=== PATIENT | female | born 1990 | race Caucasian/White ===

== ENCOUNTER 2018-09-17 12:40 | Emergency (ER) | payer OTHER ==
[~2018-09-17] VITALS: Ht 157.5 cm; Wt 63.5 kg
--- NOTE | 2018-09-17 12:55 | NUR ---
ED Nurse Note: Pt came in due to left ankle swelling and pain due to twisting during rock climbing.
--- NOTE | 2018-09-17 13:02 | Emergency Room Report ---
History of Present Illness General Chief Complaint: Lower Extremity Injury Source: Patient Present Illness HPI Patient is a 27-year-old female presenting for left ankle pain. She states that she was bouldering yesterday approximately 4 feet off the ground when she fell onto her left foot. She felt her left ankle roll underneath her and heard a popping sound. Pain has continued and is an 8 out of 10 dull ache. Does not radiate. Worse with movement and walking. She denies previous ankle injury. She has used Motrin which does help. She denies any knee pain or back pain. She denies any other injury or symptoms including numbness, tingling, calf pain , rash Allergies: Coded Allergies: AMOXICILLIN (Verified Allergy, Unknown, 09/17/18) Patient History Past Medical History: see triage record Pertinent Family History: none Last Menstrual Period: 09/01 Reviewed Nursing Documentation: PMH: Agreed; PSxH: Agreed Nursing Documentation-PM Past Medical History: No Stated History Review of Systems All Other Systems: negative except mentioned in HPI Physical Exam Vital Signs Date Time Temp Pulse Resp B/P (MAP) Pulse Ox O2 Delivery O2 Flow Rate FiO2 09/17/18 12:45 98.2 103 17 124/80 99 Room Air Sp02 EP Interpretation: reviewed, normal General Appearance: no apparent distress, alert, GCS 15, non-toxic Head: normocephalic, atraumatic Respiratory: normal inspection, no respiratory distress, speaking full sentences Musculoskeletal: back normal, decreased range of motion, inflammation - L ankle , tender - TTP over L medial and lateral malleoli Neurologic: alert, oriented x3, responsive, motor strength/tone normal, sensory intact, speech normal Psychiatric: judgement/insight normal, memory normal, mood/affect normal, no suicidal/homicidal ideation Skin: normal color, no rash, warm/dry, well hydrated Procedures Splinting Splinting : Consent: Verbal Location: L leg Hand-Made Type: plaster Splint: sugar-tong Pre-Proc Neuro Vasc Exam: normal Post-Proc Neuro Vasc Exam: normal Patient Tolerated: Well Complications: None Medical Decision Making PA Attestation Dr. Childs is my supervising physician. Patient management was discussed with my supervising physician Diagnostic Impression: Primary Impression: Ankle sprain Qualified Codes: S93.402A - Sprain of unspecified ligament of left ankle, initial encounter ER Course Patient is a 27-year-old female presenting for left ankle pain. Ddx considered include but not limited to sprain/strain, fracture, contusion Physical exam: Vitals within normal limits. No apparent distress Left ankle: There is tenderness to palpation and edema over the left lateral and medial malleoli. Limited active range of motion. Sensation intact to light touch. No ecchymosis. No knee or back tenderness. Full AROM intact X-ray of the left ankle shows swelling but no fracture. Left ankle placed in sugar tong splint and patient is provided crutches. Ortho referral provided. Pt is to F/U with PCP and ortho PUMA ER precautions are given. Patient given prescription for Motrin and will follow up with primary care physician. Other X-Ray Diagnostic Results Other X-Ray Diagnostic Results : X-Ray ordered: L ankle # of Views/Limited Vs Complete: 3 View, Complete Indication: Pain EP Interpretation: Yes PA Xray: Interpretation reviewed, by supervising MD, and agrees with findings. Interpretation: no dislocation, no fractures, other - + STS Electronically Signed by: WILI Fonseca Scribe Text I have reviewed the xray with my supervising physician and interpretation is that there are no fractures or dislocations. There is soft tissue swelling. Last Vital Signs Date Time Temp Pulse Resp B/P (MAP) Pulse Ox O2 Delivery O2 Flow Rate FiO2 09/17/18 12:45 98.2 103 17 124/80 99 Room Air Status: improved Disposition: HOME, SELF-CARE Condition: Improved Scripts Hydrocodone Bit/Acetaminophen 5-325* (NORCO 5-325*) 1 Each Tablet 1 TAB ORAL Q6HR PRN for For Pain, #8 TAB 0 Refills Prov: MELISSA VARGAS P.A. 09/17/18 Ibuprofen* (MOTRIN*) 600 Mg Tablet 600 MG ORAL Q8H PRN for For Pain, #30 TAB 0 Refills Prov: MELISSA VARGAS P.A. 09/17/18 MELISSA VARGAS Sep 17, 2018 13:02
[2018-09-17] MEDS ORDERED: IBUPROFEN600 MG ORAL (14:43)
[2018-09-17] MEDS ORDERED: NORCO 5-325 TA1 EACH ORAL (14:43)
[2018-09-17 14:49] VITALS: BP 18/77
--- NOTE | 2018-09-17 14:49 | NUR ---
ED Nurse Note: Pt cleared by health care provider for discharge. DC instructions/prescription was given and explained to pt .Instructed on how to use crutches and pt verbalized understanding of teachings. All medical research scientist such as ID band removed. Pt is AAO x4, ambulatory and left with all personal belongings. Pt letf with family member.
--- NOTE | 2018-09-18 11:33 | Diagnostic Imaging Report ---
Indication: Ankle pain Technique: 3 views of the left ankle Comparison: None Findings: No acute fractures. No dislocations. Joint spaces are preserved. No radiopaque foreign body Impression: Negative
== END 2018-09-17 14:49 | disposition home or self-care (01) ==
LOC: EMR 12:55
DX: S93.402A Sprain of unspecified ligament of left ankle, initial encounter (principal); W17.89XA Other fall from one level to another, initial encounter; Y92.89 Other specified places as the place of occurrence of the external cause; Z88.0 Allergy status to penicillin
CPT/HCPCS: 29515; 99283